=== PATIENT | male | born 1995 | race Caucasian/White ===

== ENCOUNTER 2017-04-17 15:50 | Emergency (ER) | payer MEDICAID ==
[2017-04-17 15:56] VITALS: O2SAT 96
--- NOTE | 2017-04-17 16:39 | EDPHY ---
H & P Time Seen by Provider: 04/17/17 16:27 HPI/ROS: CHIEF COMPLAINT: Left elbow injury fall off skateboard HISTORY OF PRESENT ILLNESS: 21-year-old male presents to the emergency department by private vehicle complaining of pain and swelling in his left elbow. The patient was riding his skateboard to work yesterday morning and fell he sustained multiple abrasions. He is complaining of pain in his left elbow and decreased mobility. He did not hit his head or lose consciousness. Denies neck or back pain. Denies chest pain or difficulty breathing. Denies abdominal pain. Denies numbness or tingling in his fingers. REVIEW OF SYSTEMS: Constitutional: No fever, no chills. Eyes: No double or blurry vision. ENT: No sore throat. Respiratory: No cough, no shortness of breath. Cardiac: No chest pain. Gastrointestinal: No abdominal pain, vomiting or diarrhea. Genitourinary: No dysuria. Musculoskeletal: No neck or back pain. Skin: Abrasions. No rashes. Neurological: No headache. Past Medical/Surgical History: Tetanus shot is up-to-date Social History: Single Smoking Status: Current some day smoker Physical Exam: General Appearance: Alert, no distress. Mentating normally and answering questions appropriately. No visible signs of trauma to his head. Eyes: Pupils equal and round. Extraocular motions are all intact. ENT: Mouth: Mucous membranes moist. Respiratory: No wheezing, rhonchi, or rales, lungs are clear to auscultation. Cardiovascular: Regular rate and rhythm. Gastrointestinal: Abdomen is soft and nontender, no masses, no rebound or guarding, bowel sounds normal. Neurological: Alert and oriented x 3, cranial nerves II through XII grossly intact Skin: The abrasions noted to the left elbow overlying the olecranon and to the medial aspect of his left elbow. Has swelling noted to the left elbow with decreased extension. He has pain with palpation over the olecranon as well as radial head diffusely over the left elbow. There is no redness or warmth or signs of infection. No lymphangitis. No palpable axillary lymphadenopathy. Also superficial abrasions noted to the anterior aspect of both hips overlying anterior superior iliac spine bilaterally. Also superficial abrasions noted to the right elbow. Warm and dry, no rashes. Musculoskeletal: Nontender to palpate along the cervical, thoracic or lumbar spine. Neck is supple. Extremities: unable to fully extend the left elbow secondary to pain. He is able to flex his left elbow to about 90 degrees. Limited supination secondary to pain and swelling. Abrasions as noted above. Psychiatric: Patient is oriented X 3, there is no agitation. Constitutional: Initial Vital Signs Temperature (C) 36.5 C 04/17/17 15:51 Heart Rate 85 04/17/17 15:51 Respiratory Rate 16 04/17/17 15:51 Blood Pressure 135/8 H 04/17/17 15:51 O2 Sat (%) 96 04/17/17 15:51 O2 Delivery Mode Room Air Allergies/Adverse Reactions: Penicillins Allergy (Verified 04/17/17 15:56) Home Medications: Medication Instructions Recorded Cephalexin [Keflex] 500 mg PO QID #28 cap 04/17/17 Medical Decision Making - Diagnostics Imaging Results: Imaging Impressions Elbow X-Ray 04/17/17 15:56 Impression: Large left elbow joint effusion compatible with occult fracture. Imaging: I viewed and interpreted images myself Procedures: Abrasions were cleansed and dressed. He was placed in a long-arm Ortho Glass splint and sling and examined post application in good placement with normal PATIENT ACCOUNTS COORDINATOR. ED Course/Re-evaluation: 21-year-old male presents to the emergency department with left elbow pain. X- rays reveal large joint effusion including anterior and posterior fat pads consistent with occult fracture.. His abrasions were thoroughly cleansed and dressed. He does have overlying abrasions to the elbow. No evidence of open fracture. No bleeding. The patient will be treated with antibiotics, Keflex, and placed in a splint and given orthopedic referral. Differential Diagnosis: Including but not limited to fracture, dislocation, contusion, sprain, cellulitis, septic joint Departure - Departure Disposition: Home, Routine, Self-Care Clinical Impression: Multiple abrasions Occult fracture of left elbow Qualifiers: Encounter type: initial encounter Fracture type: closed Qualified Code(s): S42.402A - Unspecified fracture of lower end of left humerus, initial encounter for closed fracture Condition: Good Instructions: Elbow Fracture (ED), Abrasion (ED), Acute Wounds (ED) Additional Instructions: Keflex 500 mg 4 times daily for 1 week to prevent infection. Keep splint and sling on until follow-up with orthopedic surgeon this week. Ibuprofen 600 mg every 8 hours as needed for pain and swelling. Return to the emergency department if you develop fever, lymphangitis, pain in her left armpit, or if you feel worse in any way. Referrals: Merrill Taylor MD [Medical Doctor] - 2-3 days without fail (Orthopedic surgeon on-call) Prescriptions: Cephalexin [Keflex] 500 mg PO QID #28 cap
[2017-04-17 17:18] VITALS: BP 123/74; PULSE 64; RESP 18; TEMP 98.1
== END 2017-04-17 17:18 | disposition home or self-care (01) ==
DX: S42.402A Unspecified fracture of lower end of left humerus, initial encounter for closed fracture (principal); S50.312A Abrasion of left elbow, initial encounter; S70.211A Abrasion, right hip, initial encounter; S70.212A Abrasion, left hip, initial encounter; S50.311A Abrasion of right elbow, initial encounter; V00.131A Fall from skateboard, initial encounter; Y99.8 Other external cause status; Y93.51 Activity, roller skating (inline) and skateboarding
CPT/HCPCS: A4565